=== PATIENT | female | born 1970 | race Caucasian/White ===

== ENCOUNTER 2016-11-03 13:17 | Day surgery (SDC) | payer OTHER ==
[~2016-11-03] VITALS: Ht 160 cm; Wt 75.8 kg
[2016-11-03 13:59] VITALS: Ht 160 cm; Wt 75.8 kg
[2016-11-03] MEDS ORDERED: NO MEDS (14:01)
[2016-11-03] MEDS ORDERED: LIDOCAINE 4% SOLUTION 50 ML BTL ONE (15:30)
[2016-11-03 15:49] VITALS: BP 140/68; PULSE 67; RESP 26
--- NOTE | 2016-11-03 16:00 | OPPN ---
Date/Time of Note Date/Time of Note DATE: 11/03/16 TIME: 15:58 Operative Report Preoperative Diagnosis ABNORMAL UGI R/O ULCER Postoperative Diagnosis NORMAL EGD Operation/Procedure Performed EGD BX RANDOM BX STOMACH Provider: HANNAH SUAZO MD Anesthesia Type: moderate sedation Estimated blood loss: none Transfusion Required: no Specimen: none Grafts/Implants: none Complications: no HANNAH SUAZO MD Nov 03, 2016 16:00
[2016-11-03] MEDS ORDERED: FENTAnyl 50 MCG/ML VIAL ONE (16:10)
[2016-11-03] MEDS ORDERED: MIDAZOLAM 1 MG/ML 2 ML INJ ONE (16:10)
[2016-11-03 16:26] VITALS: BP 113/61; PULSE 56; RESP 14
--- NOTE | 2016-11-09 11:08 | GILP ---
DATE OF PROCEDURE: 11/03/2016 PREOPERATIVE DIAGNOSIS: Gastroesophageal reflux. Epigastric pain. Abnormal upper GI. Rule out ulcer disease. POSTOP DIAGNOSIS: Normal upper endoscopy. Normal EGD. PROCEDURE PERFORMED: EGD with biopsy. Random stomach biopsy to rule out H pylori. ANESTHESIA: Moderate sedation. DESCRIPTION OF PROCEDURE: After obtaining informed consent, patient was monitored with oximetry, EKG, and blood pressure. Posterior pharynx anesthetized with 4 percent Xylocaine, sedated with Versed and fentanyl. Please refer to the nursing notes. After proper sedation, advanced Olympus video upper endoscope into the esophagus, stomach, and duodenum. Examination of the esophagus in its entire length was normal. The stomach showed mild gastritis but otherwise normal. Fundus, body and antrum normal, but random biopsies were done to rule out H pylori. Duodenal bulb and postbulbar area and second part of the duodenum, essentially normal. Multiple pictures were taken. After removal of scope, patient had no complications. RECOMMENDATION: Dear Doctor: This study is essentially normal. My recommendations would be to await for biopsy report. If any H pylori, we will treat as so. Follow up as outpatient in two weeks. Dictated By: Alexis Fermin MD /pollo/matt /Document#: [id number]
== END 2016-11-03 17:23 | disposition home or self-care (01) ==
LOC: GIL 13:17
PROVIDERS: ATTEND Internal Medicine
DX: R10.13 Epigastric pain (principal)
CPT/HCPCS: 43239; 88305; 88312; J2250; J3010; Z7610